=== PATIENT | female | born 1950 | race African-American/Black ===

== ENCOUNTER 2023-08-03 09:23 | Inpatient (IN) | payer OTHER, MEDICARE ==
[~2023-08-03] VITALS: Ht 160 cm; Wt 86.9 kg
[2023-08-03 09:31] VITALS: BP_SYST 132; PULSE 96; RESP 16; TEMP 97.6; O2SAT 95
[2023-08-03 10:24] LABS: EOSINOPHILS % (AUTO) 0.5 % (0.0-4.0); HEMATOCRIT 39.5 % (36-48); HEMOGLOBIN 13.1 g/dL (12.0-16.0); LYMPHOCYTES # (AUTO) 0.9 K/uL (1.0-5.5); LYMPHOCYTES % (AUTO) 18.9 % (20.5-51.5); MEAN CORPUSCULAR HEMOGLOBIN 31 pg (27-31); MEAN CORPUSCULAR HGB CONC 33 % (32-36); MEAN CORPUSCULAR VOLUME 94 fL (79.0-98.0); MONOCYTES # (AUTO) 0.2 K/uL (0.0-1.0); MONOCYTES % (AUTO) 5.3 % (1.7-9.3); NEUTROPHILS # (AUTO) 3.4 K/uL (1.8-7.7); NEUTROPHILS % (AUTO) 74.3 % (40.0-70.0); PLATELET COUNT (AUTO) 205 K/uL (130-430); RED BLOOD CELL COUNT(AUTO) 4.19 MIL/uL (4.2-6.2); RED CELL DISTRIBUTION WIDTH 15.7 % (9.0-15.0); WHITE BLOOD COUNT (AUTO) 4.6 K/uL (4.8-10.8)
[2023-08-03 10:51] LABS: ALANINE AMINOTRANSFERASE 29 U/L (12-78); ALBUMIN 3.1 g/dL (3.4-4.8); ANION GAP 11 (5-15); ASPARTATE AMINOTRANSFERASE 26 U/L (10-37); BILIRUBIN,DIRECT 0.9 mg/dL (0.0-0.3); CALCIUM 9.2 mg/dL (8.4-11.0); CARBON DIOXIDE 27 mmol/L (23-29); CHLORIDE 104 mmol/L (98-107); CREATININE 1.41 mg/dL (0.55-1.30); GLUCOSE 183 mg/dL (74-106); LIPASE 38 U/L (16-77); SODIUM SERUM 142 mmol/L (136-145); TOTAL BILIRUBIN 1.8 mg/dL (0.0-1.0); UREA NITROGEN, BLOOD 20 mg/dL (8-21)
[2023-08-03 10:53] LABS: COVID19 ANTIGEN SOFIA FIA NEGATIVE (NEGATIVE)
[2023-08-03 10:54] LABS: INFLUENZA TYPE A Negative (NEGATIVE); INFLUENZA TYPE B NEGATIVE (NEGATIVE)
[2023-08-03] MEDS ORDERED: BISO5TAB15 PO (11:14)
[2023-08-03] MEDS ORDERED: FURO40TA5 PO (11:14)
[2023-08-03] MEDS: ASPIRIN 81 MG TAB.CHEW PO ONE (11:44)
[2023-08-03 14:30] VITALS: BP_SYST 138; PULSE 95; RESP 20; TEMP 97.6
[2023-08-03 15:05] VITALS: O2SAT 95
[2023-08-03 17:00] VITALS: BP_SYST 142; PULSE 99; RESP 20; TEMP 98.3; O2SAT 97
[2023-08-03] MEDS ORDERED: BISOPROLOL FUMARATE 5 MG TABLET PO SCH (17:30)
[2023-08-03] MEDS: FUROSEMIDE 20 MG/2 ML VIAL IVP ONE (18:06)
[2023-08-03] MEDS: ATENOLOL 25 MG TABLET(TENORMIN) PO ONE (18:06)
[2023-08-03 20:00] VITALS: BP_SYST 130; PULSE 82; RESP 20; TEMP 97.3; O2SAT 97
[2023-08-04] VITALS: BP_SYST 116; PULSE 79; RESP 18; TEMP 97.1; O2SAT 100
[2023-08-04 08:07] VITALS: BP_SYST 137; PULSE 75; RESP 14; TEMP 97.2; O2SAT 94
[2023-08-04] MEDS: FUROSEMIDE 20 MG/2 ML VIAL IVP SCH (09:00)
[2023-08-04] MEDS: ATENOLOL 25 MG TABLET(TENORMIN) PO SCH (09:15)
[2023-08-04] MEDS: LOSARTAN POTASSIUM 50 MG TABLET (COZAAR) PO SCH (09:16)
[2023-08-04 10:23] LABS: BASOPHILS % (AUTO) 0.5 % (0.0-2.0); EOSINOPHILS % (AUTO) 0.5 % (0.0-4.0); HEMATOCRIT 40.7 % (36-48); HEMOGLOBIN 13.5 g/dL (12.0-16.0); LYMPHOCYTES % (AUTO) 19.2 % (20.5-51.5); MEAN CORPUSCULAR HEMOGLOBIN 31 pg (27-31); MEAN CORPUSCULAR HGB CONC 33 % (32-36); MEAN CORPUSCULAR VOLUME 94 fL (79.0-98.0); MONOCYTES # (AUTO) 0.3 K/uL (0.0-1.0); MONOCYTES % (AUTO) 5.1 % (1.7-9.3); NEUTROPHILS # (AUTO) 3.8 K/uL (1.8-7.7); NEUTROPHILS % (AUTO) 74.7 % (40.0-70.0); PLATELET COUNT (AUTO) 212 K/uL (130-430); RED BLOOD CELL COUNT(AUTO) 4.31 MIL/uL (4.2-6.2); RED CELL DISTRIBUTION WIDTH 15.9 % (9.0-15.0)
[2023-08-04] MEDS: FUROSEMIDE 20 MG TABLET PO ONE (10:42)
[2023-08-04 11:16] LABS: ALANINE AMINOTRANSFERASE 36 U/L (12-78); ALBUMIN 3.1 g/dL (3.4-4.8); ANION GAP 9 (5-15); ASPARTATE AMINOTRANSFERASE 34 U/L (10-37); CARBON DIOXIDE 28 mmol/L (23-29); CHLORIDE 102 mmol/L (98-107); CHOLESTEROL 121 mg/dL (<200); CREATININE 1.41 mg/dL (0.55-1.30); GLUCOSE 187 mg/dL (74-106); HDL CHOLESTEROL 41 mg/dL (>55); POTASSIUM 3.6 mmol/L (3.5-5.1); SODIUM SERUM 139 mmol/L (136-145); THYROID STIMULATING HORMONE 3.16 uIu/mL (0.34-4.82); TOTAL BILIRUBIN 1.8 mg/dL (0.0-1.0); TRIGLYCERIDES 77 mg/dL (30-150); UREA NITROGEN, BLOOD 25 mg/dL (8-21)
[2023-08-04] MEDS ORDERED: FUROSEMIDE 20 MG/2 ML VIAL IVP SCH (14:00)
[2023-08-04] MEDS: FUROSEMIDE 20 MG/2 ML VIAL IVP ONE (15:57)
[2023-08-04 19:00] VITALS: BP_SYST 131; PULSE 65; RESP 16; TEMP 97.6; O2SAT 98
[2023-08-04 20:00] VITALS: BP_SYST 131; PULSE 65; RESP 16; TEMP 97.6; O2SAT 98
[2023-08-04] MEDS: FUROSEMIDE 40 MG/4 ML VIAL IVP SCH (20:44)
[2023-08-04] MEDS ORDERED: FUROSEMIDE 20 MG TABLET PO SCH (21:00)
[2023-08-04] MEDS ORDERED: ALBUTEROL SULFATE 0.083% 2.5 MG/3 ML VIAL.NEB INH PRN (21:30)
[2023-08-04 21:43] LABS: BILIRUBIN,URINE NEGATIVE (NEGATIVE); COLOR,URINE YELLOW (YELLOW); GLUCOSE,URINE NEGATIVE (NEGATIVE); KETONES,URINE NEGATIVE (NEGATIVE); LEUKOCYTE ESTERASE ,URINE TRACE (NEGATIVE); NITRITE, URINE POSITIVE (NEGATIVE); PH,URINE 5.5 (5.0-8.0); PROTEIN URINE 1+ (NEGATIVE); UROBILINOGEN,URINE 0.2 (0.2-1.0)
[2023-08-04] MEDS: guaiFENesin/DEXTROMETHORPHAN 10 ML UDC PO PRN (21:45)
[2023-08-04 21:49] LABS: BLOOD, URINE TRACE (NEGATIVE); CLARITY/URINE HAZY (CLEAR)
[2023-08-04 22:05] LABS: BACTERIA,URINE MANY /HPF (None Seen)
[2023-08-04] MEDS: ALBUTEROL SULFATE 0.083% 2.5 MG/3 ML VIAL.NEB INH PRN (23:47)
[2023-08-04 23:51] VITALS: O2SAT 99
[2023-08-05] VITALS (10 sets, daily range): BP systolic 116–138; PULSE 58–92; RESP 16–20; TEMP 96.9–97.5; O2SAT 96–99
[2023-08-05] MEDS ORDERED: FUROSEMIDE 20 MG/2 ML VIAL IVP SCH (09:00)
[2023-08-05 09:53] LABS: BASOPHILS % (AUTO) 0.7 % (0.0-2.0); EOSINOPHILS % (AUTO) 0.5 % (0.0-4.0); HEMATOCRIT 42.8 % (36-48); HEMOGLOBIN 14.1 g/dL (12.0-16.0); LYMPHOCYTES % (AUTO) 18.3 % (20.5-51.5); MEAN CORPUSCULAR HEMOGLOBIN 31 pg (27-31); MEAN CORPUSCULAR HGB CONC 33 % (32-36); MEAN CORPUSCULAR VOLUME 94 fL (79.0-98.0); MONOCYTES # (AUTO) 0.4 K/uL (0.0-1.0); MONOCYTES % (AUTO) 6.7 % (1.7-9.3); NEUTROPHILS # (AUTO) 3.9 K/uL (1.8-7.7); NEUTROPHILS % (AUTO) 73.8 % (40.0-70.0); PLATELET COUNT (AUTO) 216 K/uL (130-430); RED BLOOD CELL COUNT(AUTO) 4.55 MIL/uL (4.2-6.2); WHITE BLOOD COUNT (AUTO) 5.3 K/uL (4.8-10.8)
[2023-08-05 10:19] LABS: ANION GAP 9 (5-15); CALCIUM 9.2 mg/dL (8.4-11.0); CARBON DIOXIDE 28 mmol/L (23-29); CHLORIDE 103 mmol/L (98-107); CREATININE 1.45 mg/dL (0.55-1.30); GLUCOSE 182 mg/dL (74-106); POTASSIUM 3.7 mmol/L (3.5-5.1); SODIUM SERUM 140 mmol/L (136-145); UREA NITROGEN, BLOOD 28 mg/dL (8-21)
[2023-08-06 01:20] VITALS: RESP 20; TEMP 97.2
[2023-08-06 08:01] LABS: BASOPHILS % (AUTO) 0.7 % (0.0-2.0); EOSINOPHILS # (AUTO) 0.1 K/uL (0.0-0.4); EOSINOPHILS % (AUTO) 1.5 % (0.0-4.0); HEMOGLOBIN 13.8 g/dL (12.0-16.0); LYMPHOCYTES % (AUTO) 17.1 % (20.5-51.5); MEAN CORPUSCULAR HEMOGLOBIN 31 pg (27-31); MEAN CORPUSCULAR HGB CONC 33 % (32-36); MEAN CORPUSCULAR VOLUME 94 fL (79.0-98.0); MONOCYTES # (AUTO) 0.3 K/uL (0.0-1.0); MONOCYTES % (AUTO) 5.2 % (1.7-9.3); NEUTROPHILS # (AUTO) 4.2 K/uL (1.8-7.7); NEUTROPHILS % (AUTO) 75.5 % (40.0-70.0); PLATELET COUNT (AUTO) 225 K/uL (130-430); RED BLOOD CELL COUNT(AUTO) 4.45 MIL/uL (4.2-6.2); RED CELL DISTRIBUTION WIDTH 16.2 % (9.0-15.0); WHITE BLOOD COUNT (AUTO) 5.6 K/uL (4.8-10.8)
[2023-08-06 08:09] LABS: ALANINE AMINOTRANSFERASE 32 U/L (12-78); ALBUMIN 3.1 g/dL (3.4-4.8); ANION GAP 10 (5-15); ASPARTATE AMINOTRANSFERASE 35 U/L (10-37); CALCIUM 8.3 mg/dL (8.4-11.0); CARBON DIOXIDE 29 mmol/L (23-29); CHLORIDE 102 mmol/L (98-107); GLUCOSE 189 mg/dL (74-106); POTASSIUM 3.4 mmol/L (3.5-5.1); SODIUM SERUM 141 mmol/L (136-145); TOTAL BILIRUBIN 1.4 mg/dL (0.0-1.0); UREA NITROGEN, BLOOD 29 mg/dL (8-21)
[2023-08-06 08:23] LABS: PHOSPHORUS 4.1 mg/dL (2.7-4.5)
[2023-08-06 08:26] VITALS: BP_SYST 125; PULSE 75; RESP 16; TEMP 97.5; O2SAT 99
[2023-08-06 10:59] VITALS: BP_SYST 128; PULSE 70; RESP 16; TEMP 97.5; O2SAT 98
[2023-08-06] MEDS: POTASSIUM CHLORIDE 20 MEQ TABLET.ER PO ONE (11:03)
[2023-08-06] MEDS: CALCIUM GLUC 2 GM/100ML-NACL 100 ML IV ONE (12:00)
[2023-08-06 16:01] VITALS: BP_SYST 125; PULSE 78; RESP 15; TEMP 97.7; O2SAT 99
[2023-08-06 20:10] VITALS: BP_SYST 131; PULSE 72; RESP 20; TEMP 96.9; O2SAT 97
[2023-08-06 21:00] VITALS: O2SAT 98
[2023-08-07] VITALS (8 sets, daily range): BP systolic 123–140; PULSE 55–82; RESP 15–18; TEMP 97.2–97.7; O2SAT 96–100
[2023-08-07 06:31] LABS: BASOPHILS % (AUTO) 0.6 % (0.0-2.0); EOSINOPHILS % (AUTO) 0.8 % (0.0-4.0); HEMATOCRIT 41.6 % (36-48); HEMOGLOBIN 13.9 g/dL (12.0-16.0); MEAN CORPUSCULAR HEMOGLOBIN 31 pg (27-31); MEAN CORPUSCULAR HGB CONC 33 % (32-36); MEAN CORPUSCULAR VOLUME 94 fL (79.0-98.0); MONOCYTES # (AUTO) 0.3 K/uL (0.0-1.0); MONOCYTES % (AUTO) 5.6 % (1.7-9.3); NEUTROPHILS # (AUTO) 4.2 K/uL (1.8-7.7); PLATELET COUNT (AUTO) 243 K/uL (130-430); RED BLOOD CELL COUNT(AUTO) 4.41 MIL/uL (4.2-6.2); RED CELL DISTRIBUTION WIDTH 15.8 % (9.0-15.0); WHITE BLOOD COUNT (AUTO) 5.7 K/uL (4.8-10.8)
[2023-08-07 06:46] LABS: ANION GAP 9 (5-15); CALCIUM 8.6 mg/dL (8.4-11.0); CARBON DIOXIDE 29 mmol/L (23-29); CHLORIDE 102 mmol/L (98-107); CREATININE 1.32 mg/dL (0.55-1.30); GLUCOSE 181 mg/dL (74-106); PHOSPHORUS 4.1 mg/dL (2.7-4.5); POTASSIUM 3.5 mmol/L (3.5-5.1); SODIUM SERUM 140 mmol/L (136-145); UREA NITROGEN, BLOOD 26 mg/dL (8-21)
[2023-08-08 00:05] VITALS: BP_SYST 122; PULSE 70; RESP 18; TEMP 97.1; O2SAT 99
[2023-08-08 07:14] LABS: BASOPHILS % (AUTO) 0.7 % (0.0-2.0); EOSINOPHILS # (AUTO) 0.1 K/uL (0.0-0.4); EOSINOPHILS % (AUTO) 1.3 % (0.0-4.0); HEMATOCRIT 42.6 % (36-48); LYMPHOCYTES % (AUTO) 18.3 % (20.5-51.5); MEAN CORPUSCULAR HEMOGLOBIN 31 pg (27-31); MEAN CORPUSCULAR HGB CONC 33 % (32-36); MEAN CORPUSCULAR VOLUME 94 fL (79.0-98.0); MONOCYTES # (AUTO) 0.3 K/uL (0.0-1.0); MONOCYTES % (AUTO) 5.1 % (1.7-9.3); NEUTROPHILS # (AUTO) 4.3 K/uL (1.8-7.7); NEUTROPHILS % (AUTO) 74.6 % (40.0-70.0); PLATELET COUNT (AUTO) 232 K/uL (130-430); RED BLOOD CELL COUNT(AUTO) 4.53 MIL/uL (4.2-6.2); RED CELL DISTRIBUTION WIDTH 15.7 % (9.0-15.0); WHITE BLOOD COUNT (AUTO) 5.7 K/uL (4.8-10.8)
[2023-08-08 07:21] LABS: ANION GAP 10 (5-15); CARBON DIOXIDE 28 mmol/L (23-29); CHLORIDE 103 mmol/L (98-107); CREATININE 1.24 mg/dL (0.55-1.30); GLUCOSE 161 mg/dL (74-106); PHOSPHORUS 3.4 mg/dL (2.7-4.5); POTASSIUM 3.4 mmol/L (3.5-5.1); SODIUM SERUM 141 mmol/L (136-145); UREA NITROGEN, BLOOD 25 mg/dL (8-21)
[2023-08-08 07:39] VITALS: BP_SYST 139; PULSE 64; RESP 18; TEMP 97.2; O2SAT 95
[2023-08-08] MEDS ORDERED: ATEN-166 PO (11:59)
[2023-08-08] MEDS ORDERED: LOSA-413 PO (11:59)
[2023-08-08 12:15] VITALS: BP_SYST 113; PULSE 61; RESP 16; TEMP 97.2; O2SAT 100
[2023-08-08 16:30] VITALS: BP_SYST 119; PULSE 62; RESP 16; TEMP 97.5; O2SAT 99
[2023-08-08 19:45] VITALS: BP_SYST 127; PULSE 64; RESP 18; TEMP 97.5; O2SAT 99
[2023-08-08 20:00] VITALS: O2SAT 99
[2023-08-09 00:18] VITALS: BP_SYST 140; PULSE 65; RESP 16; TEMP 96.7; O2SAT 100
[2023-08-09 04:31] LABS: BASOPHILS % (AUTO) 0.7 % (0.0-2.0); EOSINOPHILS # (AUTO) 0.1 K/uL (0.0-0.4); EOSINOPHILS % (AUTO) 1.7 % (0.0-4.0); HEMATOCRIT 41.6 % (36-48); HEMOGLOBIN 13.5 g/dL (12.0-16.0); LYMPHOCYTES # (AUTO) 0.9 K/uL (1.0-5.5); LYMPHOCYTES % (AUTO) 18.7 % (20.5-51.5); MEAN CORPUSCULAR HEMOGLOBIN 31 pg (27-31); MEAN CORPUSCULAR HGB CONC 33 % (32-36); MEAN CORPUSCULAR VOLUME 94 fL (79.0-98.0); MONOCYTES # (AUTO) 0.3 K/uL (0.0-1.0); MONOCYTES % (AUTO) 5.6 % (1.7-9.3); NEUTROPHILS # (AUTO) 3.7 K/uL (1.8-7.7); NEUTROPHILS % (AUTO) 73.3 % (40.0-70.0); PLATELET COUNT (AUTO) 241 K/uL (130-430); RED CELL DISTRIBUTION WIDTH 15.8 % (9.0-15.0)
[2023-08-09 05:02] VITALS: O2SAT 95
[2023-08-09 05:10] LABS: ALANINE AMINOTRANSFERASE 27 U/L (12-78); ALBUMIN 2.8 g/dL (3.4-4.8); ANION GAP 4 (5-15); ASPARTATE AMINOTRANSFERASE 28 U/L (10-37); CALCIUM 8.7 mg/dL (8.4-11.0); CARBON DIOXIDE 34 mmol/L (23-29); CHLORIDE 104 mmol/L (98-107); CREATININE 1.24 mg/dL (0.55-1.30); GLUCOSE 163 mg/dL (74-106); PHOSPHORUS 3.7 mg/dL (2.7-4.5); POTASSIUM 3.2 mmol/L (3.5-5.1); SODIUM SERUM 142 mmol/L (136-145); TOTAL BILIRUBIN 1.3 mg/dL (0.0-1.0); TOTAL PROTEIN, SERUM 6.6 g/dL (6.4-8.3); UREA NITROGEN, BLOOD 23 mg/dL (8-21)
[2023-08-09 07:25] VITALS: BP_SYST 125; PULSE 76; RESP 16; TEMP 98.7; O2SAT 97
[2023-08-09 09:45] VITALS: O2SAT 96
[2023-08-09] MEDS ORDERED: SIME80TA15 PO (10:04)
[2023-08-09] MEDS: POTASSIUM CHLORIDE 20 MEQ TABLET.ER PO ONE (11:30)
[2023-08-09 12:00] VITALS: BP_SYST 122; PULSE 73; RESP 16; TEMP 97.6; O2SAT 96
[2023-08-09 13:22] VITALS: BP_SYST 122; PULSE 73; RESP 16; TEMP 97.6; O2SAT 96
== END 2023-08-09 14:30 | disposition home health service (06) | DRG 280 ==
LOC: SED 09:23 → STU 11:50 → SMU 08-09 04:40
PROVIDERS: ADMIT Preventive Medicine Preventive Medicine/Occupational Environmental Medicine; ATTEND Preventive Medicine Preventive Medicine/Occupational Environmental Medicine
DX: I50.43 Acute on chronic combined systolic (congestive) and diastolic (congestive) heart failure (principal); J96.00 Acute respiratory failure, unspecified whether with hypoxia or hypercapnia; I21.A1 Myocardial infarction type 2; N17.9 Acute kidney failure, unspecified; I42.9 Cardiomyopathy, unspecified; N39.0 Urinary tract infection, site not specified; Z20.822 Contact with and (suspected) exposure to COVID-19; E11.65 Type 2 diabetes mellitus with hyperglycemia; D72.819 Decreased white blood cell count, unspecified; E11.21 Type 2 diabetes mellitus with diabetic nephropathy; E87.70 Fluid overload, unspecified; E11.22 Type 2 diabetes mellitus with diabetic chronic kidney disease; N18.31 Chronic kidney disease, stage 3a; E83.41 Hypermagnesemia; F41.9 Anxiety disorder, unspecified; E88.09 Other disorders of plasma-protein metabolism, not elsewhere classified; E87.6 Hypokalemia; E83.51 Hypocalcemia; I25.10 Atherosclerotic heart disease of native coronary artery without angina pectoris; Z88.2 Allergy status to sulfonamides; Z79.899 Other long term (current) drug therapy; E83.42 Hypomagnesemia; E80.6 Other disorders of bilirubin metabolism
CPT/HCPCS: 36415; 71045; 76770; 80048; 80053; 80061; 80076; 81000; 81001; 81015; 82570; 82948; 83690; 83735; 83880; 84100; 84443; 84484; 85025; 87086; 93005; 93306; 94070; 94640; 94760; 97110-GP; 97116-GP; 97530-GP; 99291; G0378; J1940